=== PATIENT | female | born 1965 | race Caucasian/White ===

== ENCOUNTER 2018-09-26 14:31 | Emergency (ER) | payer BC ==
--- NOTE | 2018-09-26 14:47 | UC ---
General HPI - HPI Summary HPI Summary: 53 yo female presents with concerns about her blood pressure. She tells me that she was seen by her PCP (Dr. Dorantes) about 2.5months ago and diagnosed with HTN and started on irbesartan. She took her BPs after starting the medication and they were "fine" per pt and she stopped checking. About a week ago she was at the grocery store and decided to check her BP and it was 149/84 - she was asymptomatic. Today she was at work and her and her coworkers were checking their blood pressures with a wrist cuff and pt had a reading of 209/109. She was asymptomatic. This reading frightened her and she called her PCP's office who advised her to be evaluated. She has been taking her medication as prescribed. Currently she has no symptoms and denies headache, dizziness, recent illness, vision changes, SOB, chest pain, n/v, weakness, or numbness. - History of Current Complaint Chief Complaint: UCGeneralIllness Stated Complaint: BP ISSUE Time Seen by Provider: 09/26/18 14:47 Hx Obtained From: Patient Hx Last Menstrual Period: 09/02/18 Current Severity: None Pain Intensity: 0 - Allergy/Home Medications Allergies/Adverse Reactions: Allergies Allergy/AdvReac Type Severity Reaction Status Date / Time No Known Allergies Allergy Verified 09/26/18 14:46 Home Medications: Home Medications Cetirizine* [ZyrTEC 10 MG TAB*] 5 mg PO DAILY PRN 09/26/18 [History Confirmed ] Irbesartan 75 mg PO DAILY 09/26/18 [History Confirmed 09/26/18] Levothyroxine TAB* [Synthroid TAB*] 50 mcg PO DAILY 09/26/18 [History Confirmed 09/26/18] Sertraline* [Zoloft*] 50 mg PO DAILY 09/26/18 [History Confirmed 09/26/18] PMH/Surg Hx/FS Hx/Imm Hx Endocrine History: Hypothyroidism Cardiovascular History: Hypertension Psychological History: Anxiety - Surgical History Surgical History: Yes Surgery Procedure, Year, and Place: Tubal, surgery on ovarian cyst approx 1992 - Family History Known Family History: Positive: Cardiac Disease, Hypertension - Social History Occupation: Employed Full-time Lives: With Family Alcohol Use: Daily Alcohol Amount: a couple of glasses of wine Substance Use Type: None Smoking Status (MU): Never Smoked Tobacco Review of Systems All Other Systems Reviewed And Are Negative: Yes Constitutional: Positive: Negative Skin: Positive: Negative Eyes: Positive: Negative ENT: Positive: Negative Respiratory: Positive: Negative Cardiovascular: Positive: Negative Gastrointestinal: Positive: Negative Genitourinary: Positive: Negative Motor: Positive: Negative Neurovascular: Positive: Negative Musculoskeletal: Positive: Negative Neurological: Positive: Negative Psychological: Positive: Negative Physical Exam - Summary Physical Exam Summary: GENERAL: NAD. WDWN. No pain distress. SKIN: No rashes, sores, ulcers, masses, lesions. HEENT: Head: AT/NC. Eyes: PERRLA. EOM intact. Conjunctiva clear without inflammation or discharge. Ears: Hearing grossly normal. TMs intact, no bulging, erythema, or edema. Nose: Nasal mucosa pink and moist. NTTP maxillary and frontal sinus. Throat: Posterior oropharynx without exudates, erythema, or tonsillar enlargement. Uvula midline. NECK: Supple. Nontender. FROM CHEST: CTAB. No r/r/w. No accessory muscle use. Breathing comfortably and in no distress. CV: RRR. Without m/r/g. Pulses intact. Brisk cap refill. MSK: FROM in B/L UEs and LEs with symmetric strength. NEURO: A&Ox3. 3 word recall, remote, recent memory, ability to follow 2-step directions, and attention intact. CN: II: Peripheral daniel intact. Vision normal. III, IV, : EOMI. No nystagmus. PERRLA. V: Sensations intact and symmetric. Opens mouth and clenches teeth. VII: No facial asymmetry. Forehead wrinkles. Grins, shuts eyes, frowns, puffs cheeks. VIII: Hearing intact to finger rub. IX, X: Swallows and coughs. Uvula midline. XI: Shrugs shoulders. Turns head against resistance. XII: No tongue deviation [id number] are intact. Gait with normal base. Romberg: maintains balance, no pronator drift. Normal speech. No facial drooping. PSYCH: Age appropriate behavior. Triage Information Reviewed: Yes Vital Signs: Initial Vital Signs Temp 98.5 F 09/26/18 14:39 Pulse 77 09/26/18 14:39 Resp 16 09/26/18 14:39 BP 174/82 09/26/18 14:39 Pulse Ox 100 09/26/18 14:39 Vital Signs Reviewed: Yes Course/Dx - Course Course Of Treatment: Called Dr. Dorantes's office and spoke with him - he recommends no change at this time. He will set pt up with ambulatory BP monitor and follow up with her in his office. Lying 150/71 HR 62 Sitting 156/82 HR 64 Standing 140/74 HR 67 Discussed with pt and she is agreeable with the plan. - Diagnoses Provider Diagnosis: Hypertension Discharge - Sign-Out/Discharge Documenting (check all that apply): Patient Departure All imaging exams completed and their final reports reviewed: No Studies - Discharge Plan Condition: Stable Disposition: HOME Patient Education Materials: Hypertension (ED) Referrals: Nasir Dorantes MD [Primary Care Provider] - As Soon As Possible Additional Instructions: Your blood pressure readings at the drug store have been acceptable. I spoke with Dr. Dorantes and he is going to set you up with an ambulatory blood pressure monitor for 24 hours to check your pressures. His office will be in contact with you within 1-2 days, if you have not heard from them in this time period - please give their office a call If you develop a headache, dizziness, chest pain, palpitations, shortness of breath, or weakness/numbness - please go to the ER immediately. - Billing Disposition and Condition Condition: STABLE Disposition: Home
[2018-09-26 15:23] VITALS: BP 140/71
== END 2018-09-26 15:25 | disposition home or self-care (01) ==
LOC: UCEAST 14:31
DX: I10 Essential (primary) hypertension (principal); E03.9 Hypothyroidism, unspecified; F41.9 Anxiety disorder, unspecified
CPT/HCPCS: 99211; G0463